=== PATIENT | male | born 1955 | race Caucasian/White ===

== ENCOUNTER 2018-06-12 10:45 | Emergency (ER) | payer OTHER ==
[~2018-06-12] VITALS: Ht 167.6 cm; Wt 68.2 kg
[~2018-06-12 10:45] MED LIST: ACET-784 PO; ATOR10TA84 PO; AUD NEB; BISA10S PR; CEFTR1IV IV; DSS100 PO; FLEETOIL PR; GUAIFDM PO; IBUP-1685 PO; INSNOV SQ; IPRNEB IH; METO10L IVP; MOM30 PO; MORP2SYR IVP; NYST100026 PO; PANT40I IV; PPN IV
[2018-06-12 11:04] LABS: GLUCOSE,POINT OF CARE 175 MG/DL (70-110)
[2018-06-12 11:13] VITALS: BP 113/74
[2018-06-12] MEDS ORDERED: SODIUM CHLORIDE 0.9% 1,000 ML IV ONE (11:30)
[2018-06-12] MEDS ORDERED: IBUP-2071 PO (11:31)
[2018-06-12] MEDS ORDERED: FAMOTIDINE 20 MG TABLET PO ONE (12:15)
[2018-06-12] MEDS ORDERED: ONDANSETRON HCL 4 MG TABLET PO ONE (12:15)
== END 2018-06-12 12:35 | disposition left against medical advice (07) ==
LOC: EMS 10:46
DX: R10.9 Unspecified abdominal pain (principal); R11.2 Nausea with vomiting, unspecified; E11.9 Type 2 diabetes mellitus without complications; E78.00 Pure hypercholesterolemia, unspecified; I10 Essential (primary) hypertension; I25.10 Atherosclerotic heart disease of native coronary artery without angina pectoris; Z88.1 Allergy status to other antibiotic agents; Z88.8 Allergy status to other drugs, medicaments and biological substances; Z79.899 Other long term (current) drug therapy
CPT/HCPCS: 71045; 82962; 93005; 99283; J7030